=== PATIENT | female | born 1955 | race African-American/Black ===

== ENCOUNTER 2016-08-11 19:32 | Inpatient (IN) | payer BC ==
--- NOTE | ~2016-08-11 | DS ---
Discharge Summary [facility] [address] [place]. [address] NAME: KIM SAXENA : 59 STATUS : DIS IN PAT#: [id number] AGE: 61 ADM/REG DATE : 08/11/16 MR#: [id number] REPORT SERV DATE: 08/19/16 DICTATED BY: KENZIE NOBLE DATE: 08/18/16 REPORT STATUS : Draft TRANSCRIBED BY: MODL DATE: 08/18/16 ADMISSION DATE: 08/11/2016 DISCHARGE DATE: 08/18/2016 FINAL DIAGNOSES: 1. Acute kidney injury on chronic kidney disease IV, improving. 2. Urinary tract infection Klebsiella. 3. Hypertension. 4. Diabetes. 5. Anemia of chronic disease. 6. Mild pancytopenia. 7. Morbid obesity. 8. Status post hyperkalemia. 9. Status post gastroenteritis. 10.History of schizophrenia, cleared by Psych. DIAGNOSTIC EXAMS: Chest x-ray showing no acute process. Renal ultrasound showing small bilateral kidneys with increased renal cortical echotexture consistent with medical renal disease, no evidence of obstruction. CAT scan of the abdomen and pelvis showing mild to moderately distended small bowel gas- fluid level. Gas-fluid levels in the stomach and the colon suggesting gastroenteritis. No hydronephrosis. Repeat chest x-ray showing no acute cardiopulmonary disease, low lung volumes. HOSPITAL COURSE: Please refer to the H and P done by Dr. Arias dated on 08/11/2016. Briefly, this is a 61-year-old female with history of CKD who comes in for nausea, vomiting, and not feeling well. The patient went to the emergency room and was found to be in acute renal failure; this might be due to the diuretics and the ARBs that the patient was taking compiled with the nausea and vomiting that she has been having. The patient's creatinine was initially at 10, and with supportive treatment, it went down to 4.36 on discharge. We got Renal involved, and they did not see the need for a dialysis as the patient was urinating well, and they wanted the diuretics and the ARBs to be held until she follows up with her produce sorter, Dr. Storm, on an outpatient basis. Meanwhile, her gastroenteritis resolved, we were not able to culture any bacteria, and she was eating without any nausea and vomiting. Her vitals remained stable. Of note, she was supposed to be taking long- acting insulin with a sliding scale, however, her blood sugars have been wonderful while she was here, and we checked the hemoglobin A1c, it was 5.8. So with her renal function and hemoglobin A1c of 5.8, it will be better if we just monitor her sugar with sliding scale protocol level 1 and no additional insulin or diabetic medications. The patient has been approved to go to [facility]. She will be transferred there today, and she will follow up with the doctor; then follow up with PCP, Dr. Antonia Gates after SNF discharge; and follow up with Nephrology, Dr. Storm, in two to three weeks. DISCHARGE MEDICATIONS: She will be on the following medications: Aspirin 325 mg a day, Discharge Summary [address] [address] NAME: KIM SAXENA : 59 STATUS : DIS IN PAT#: [id number] AGE: 61 ADM/REG DATE : 08/11/16 MR#: [id number] REPORT SERV DATE: 08/19/16 DICTATED BY: KENZIE NOBLE. DATE: 08/18/16 REPORT STATUS : Draft TRANSCRIBED BY: MODShante DATE: 08/18/16 Coreg 25 mg twice a day, iron 300 mg twice a day, gabapentin 300 mg twice a day, subcu insulin protocol level 1, multivitamin once a day, Pravachol 40 mg at bedtime, trazodone 50 mg at bedtime, hydralazine 25 mg twice a day, albuterol as needed, and Tylenol as needed. She will be off the Zanaflex, Aldactone, morphine, furosemide, Cozaar, and potassium, and she will be continuing her PPI as scheduled at 40 mg once a day of Protonix. This has been explained to the patient, she agreed and understood the plan. MARY ALICE/RADHA Kenzie Noble M.D. / [id number] CC: Chelle Hinson MD
--- NOTE | ~2016-08-11 | CN ---
Consultation Report [facility] [address] [place]. [address] NAME: KIM SAXENA : 59 STATUS : ADM IN PAT#: [id number] AGE: 61 ADM/REG DATE : 08/11/16 MR#: [id number] REPORT SERV DATE: 08/17/16 DICTATED BY: RINKU FULLER DATE: 08/17/16 REPORT STATUS : Draft TRANSCRIBED BY: RADHA DATE: 08/17/16 PSYCHIATRIC CONSULTATION DATE OF CONSULTATION: 08/17/2016 I reviewed the patient's current and old medical records. I discussed patient's status with Dr. Gaytan. I discussed the patient's history with her long-term boyfriend who was at the bedside. HISTORY OF PRESENT ILLNESS: She was admitted with nausea, vomiting, associated with an acute exacerbation of chronic kidney disease. At this time, I am consulted because of her history of psychiatric issues in the past. PAST PSYCHIATRIC HISTORY: In recent years, she has had three or four admissions to [facility] [place] with delusional thinking. She was diagnosed with schizophrenia while she was there. She is followed as an outpatient by a mental health clinic on [facility]. In recent months, she has been very stable. Her only psychotropic medication at this time is trazodone 50 mg at bedtime. SOCIAL HISTORY: She has been blind for a number of years. She stated her blindness was caused by a brain tumor. She lives with her boyfriend of over thirty years. FAMILY HISTORY: Her sister has more severe schizophrenia. MENTAL STATUS: She was awake and alert. She was pleasant and cooperative in attitude. Her mood was euthymic. Her affect was full and appropriate. Her thinking was logical. She had no delusions. She had no hallucinations. She was oriented to time, place, and person. She was motivated for rehabilitation. DIAGNOSIS: Schizophrenia, unspecified type, by history. RECOMMENDATIONS: She is stable from a psychiatric viewpoint. I will sign off. DANIA/RADHA Rinku Fuller M.D. / [id number] CC: Arley Gaytan M.D.
--- NOTE | ~2016-08-11 | CN ---
Consultation Report [facility] [address] [place]. [address] NAME: KIM ODELL : 59 STATUS : ADM IN PAT#: [id number] AGE: 61 ADM/REG DATE : 08/11/16 MR#: [id number] REPORT SERV DATE: 08/15/16 DICTATED BY: DATE: REPORT STATUS : Draft TRANSCRIBED BY: MODShante DATE: 08/12/16 CONSULTATION REPORT DATE OF CONSULTATION: REASON FOR CONSULTATION: Acute kidney injury. HISTORY OF PRESENT ILLNESS: Ms. Odell is a 61-year-old black female with CKD stage 4, followed in the office by Dr. Storm with baseline creatinine that had been anywhere from 2.5 to 3 last time in our office. In February, her creatinine had been up to 3.63. It looks like her creatinine has been rising over the last six months of the year in 2016. She states, she was hospitalized at [facility] last month and her kidney function was stable. She is also being hospitalized at [facility] last night for depression. She is unaware of any recent medicine changes and she has been maintained on ARB, Aldactone, and potassium for some time. She presented to the emergency department yesterday with nausea, vomiting. She states her nausea, vomiting has only been present for 24 hours. Denied any diarrhea. She has had some shortness of breath, but relates this to her asthma. No chest pain, tightness, or pressure. In the emergency department, she was found to have a creatinine of 10 and a potassium of 6.3, creatinine overnight down to 9.71 and potassium is 4.9. There was some question of urinary retention. She also has UA findings consistent with urinary tract infection. PAST MEDICAL HISTORY: CKD stage 4, frequent urinary tract infections, secondary hyperparathyroidism with hypocalcemia, type 2 diabetes, hypertension, morbid obesity, hyperlipidemia, chronic incontinence, asthma. The patient is blind. SOCIAL HISTORY: She states that, she lives with her boyfriend, and she does walk some, but gets around in a wheelchair as well. Does not smoke. Only occasional alcohol. FAMILY MEDICAL HISTORY: Positive for mother with kidney disease, but not requiring dialysis. Diabetes, hypertension, CVA, and AR all run in her family as well. ALLERGIES: NONE. MEDICATIONS: At home are losartan, Embeda, Klor-Con, Pravachol, Aldactone, Zanaflex, trazodone, iron, calcium, Tylenol, albuterol, aspirin, Coreg, Lasix, Neurontin, Lantus, Humalog. REVIEW OF SYSTEMS: 12-point review of systems obtained, negative with the exception of that in HPI. PHYSICAL EXAMINATION: VITAL SIGNS: Temp 98.1, blood pressure 173/74, pulse 73, respiratory rate 18, O2 saturation is 100%. GENERAL: This is a pleasant, cooperative, black female. Awake, alert, and oriented, in no Consultation Report [address] [place]. [address] NAME: KIM ODELL : 59 STATUS : ADM IN PAT#: [id number] AGE: 61 ADM/REG DATE : 08/11/16 MR#: [id number] REPORT SERV DATE: 08/15/16 DICTATED BY: DATE: REPORT STATUS : Draft TRANSCRIBED BY: MODShante DATE: 08/12/16 acute distress. Answers questions appropriately. HEENT: Normocephalic, atraumatic. Conjunctivae, clear. Sclerae, anicteric. Oral mucosa is moist. NECK: Thick, difficult to assess. RESPIRATIONS: Even and unlabored. Breath sounds clear to auscultation. HEART: Rate is regular. She does have a systolic murmur. No rub or gallop. ABDOMEN: Obese, soft, nontender. Bowel sounds active. No CVA tenderness. BACK: Within normal limits. EXTREMITIES: With lymphedema. The edema does not only mildly pits and no unusual rashes, skin lesions. NEURO: Exam with generalized weakness. No focal deficits. Mood and affect, pleasant and appropriate. PERTINENT LABS AND X-RAYS: Sodium 140, potassium 4.9, chloride 101, CO2 of 28, BUN of 66, creatinine 9.7, calcium 9.1, phosphorus of 6.3, albumin of 3.1, ferritin 614. TSH of 0.729. WBCs 2.4, H and H 9 and 30, platelets are 127,000. IMPRESSION: 1. Acute kidney injury on chronic kidney disease stage 4. 2. Hyperkalemia. 3. Urinary tract infection, question of urinary retention. 4. Type 2 diabetes. 5. Hypertension. 6. Nausea and vomiting. PLAN: IV fluids. CT of the abdomen. Koch catheter. Hold Lasix, losartan, potassium, and Aldactone. Follow labs. Follow I's and O's. Hope to avoid dialysis, however it looks as though in the last six months of 2016 that she had some progression of disease. We may be seeing some progression here. We will follow along with you. Thank you for the consultation. MARÍA/MODL MICHELLE Ac / [id number] CC: Margaret Mckeon M.D.
--- NOTE | ~2016-08-11 | HP ---
History And Physical [facility] [address] [place]. [address] NAME: KIM ODELL : 59 STATUS : ADM IN [facility]#: [id number] AGE: 61 ADM/REG DATE : 08/11/16 MR#: [id number] REPORT SERV DATE: 08/12/16 DICTATED BY: DESTINY STEVEN DATE: 08/11/16 REPORT STATUS : Draft TRANSCRIBED BY: MODShante DATE: 08/11/16 DATE OF ADMISSION: 08/11/2016 POINT OF ENTRY: [facility] Emergency Department. PRIMARY KAIAWHINA KURA KAUPAPA MAORI: Dr. Storm. PRIMARY RIGGER APPRENTICE: Dr. Mariano. CHIEF COMPLAINT: Nausea, vomiting, not feeling well. HISTORY OF PRESENT ILLNESS: Ms. Odell is a 61-year-old female with a history of chronic kidney disease stage 3 to 4 with a baseline creatinine of approximately 2.5 to 3 as well as insulin-dependent diabetes mellitus type 2, hypertension, hyperlipidemia, and morbid obesity who presents to the emergency department today with a few day history of nausea, vomiting, poor oral intake, as well as not feeling well. The patient states that she was recently admitted to [facility] about two to three months ago for similar complaints of dehydration and acute kidney injury. After [facility] hospitalization, she was subsequently transferred to [facility] for treatment for depression. The patient states that she was doing well until about three to four days ago when she started to develop nausea and vomiting with inability to tolerate any significant oral intake. The patient states she was still trying to take her medications but cannot tell me if she kept them down or not as she is legally blind. She denies any diarrhea, any abdominal pain, fevers, night sweats, or chills. Beginning today, patient started to feel poorly and presented to the emergency department. Of note, her partner who is at bedside tells me that she is currently on an antibiotic for what she thinks is a bladder or kidney infection. Initial evaluation in the emergency department notable for a BUN of 69, creatinine of 10.10 with a potassium of 6.3. EKG showed very mild T-wave prominence in II and V3 but with no QT prolongation. Remainder of the labs otherwise unremarkable. The patient was given the appropriate hyperkalemia treatments, started on IV fluids, and admitted to the Hospitalist Service. The patient again denies fevers, night sweats, chills, chest pain, cough, sputum production, abdominal pain, diarrhea, constipation, dysuria, melena, hematochezia, or hematemesis. She reports stable shortness of breath secondary to her asthma as well as the above-mentioned nausea, vomiting, able to tolerate any oral intake. REVIEW OF SYSTEMS: Comprehensive review of systems otherwise negative unless listed in history of present illness. History And Physical [address] [address] NAME: KIM ODELL : 59 STATUS : ADM IN PAT#: [id number] AGE: 61 ADM/REG DATE : 08/11/16 MR#: [id number] REPORT SERV DATE: 08/12/16 DICTATED BY: DESTINY STEVEN DATE: 08/11/16 REPORT STATUS : Draft TRANSCRIBED BY: RADHA DATE: 08/11/16 PREVIOUS MEDICAL HISTORY: 1. Chronic kidney disease, stage 3 to stage 4. Baseline creatinine of approximately 2.5 to 3. 2. Insulin-dependent diabetes mellitus, type 2. 3. Hypertension. 4. Hyperlipidemia. 5. Morbid obesity. 6. Asthma. 7. Depression. 8. Osteoarthritis. 9. Degenerative disk disease. 10.Legal blindness. SURGICAL HISTORY: 1. Tubal ligation. 2. Abdominal hysterectomy. ALLERGIES: NO KNOWN DRUG ALLERGIES. HOME MEDICATIONS: 1. Tylenol 500 mg p.o. daily. 2. Albuterol one nebulization inhalation 4 hours p.r.n. 3. Aspirin 325 mg daily. 4. Lantus 40 units at bedtime. 5. Insulin sliding scale. 6. Coreg one tab b.i.d., dose unknown. 7. Aldactone one tab daily, dose unknown. 8. Muscle relaxer t.i.d., to be clarified. 9. Morphine one tab daily, to be clarified. 10.Reflux medication half tab daily, to be clarified. 11.Lasix one tab daily, dose unknown. 12.Gabapentin one tab b.i.d., dose unknown. 13.Losartan one tab daily, dose unknown. 14.Glkd-xzl-vwmfgbn iron supplement. 15.Calcium one tab daily. 16.Potassium one tab daily, dose unknown. 17.Pravastatin one tab at bedtime, dose unknown. 18.Trazodone one tab at bedtime, dose unknown. SOCIAL HISTORY: Denies any tobacco, alcohol, or illicits. Lives with her partner, again is legally blind. FAMILY MEDICAL HISTORY: Mother with hypertension, diabetes. Father with hypertension, diabetes. Siblings with diabetes. LABS AND IMAGIN. White count is 3.6, hemoglobin 9.9, hematocrit is 30.4, and platelet count is 179. INR History And Physical [address] [place]. [address] NAME: KIM ODELL : 59 STATUS : ADM IN [facility]#: [id number] AGE: 61 ADM/REG DATE : 08/11/16 MR#: [id number] REPORT SERV DATE: 08/12/16 DICTATED BY: DESTINY STEVEN DATE: 08/11/16 REPORT STATUS : Draft TRANSCRIBED BY: RADHA DATE: 08/11/16 is 1.1. MCV 79.8. 2. Sodium is 136, potassium 6.3, chloride 99, carbon dioxide 30, BUN 69, creatinine 10.10, glucose is 88, calcium is 9.3, magnesium 1.9, protein 7.3, albumin is 3.5, bilirubin is 0.3, ALT is 12, AST 9, and alkaline phosphatase is 64. 3. Lipase is 229. 4. Troponin 0.03. 5. EKG per my review shows normal sinus rhythm with some septal Q-waves with some mild T- wave prominence in lead II as well as V3, but no evidence of any hyperacute T-waves or QRS or QT prolongation. PHYSICAL EXAMINATION: VITAL SIGNS: Temperature is 98.5 degrees Fahrenheit, pulse is 82, respirations 18, saturating 94% on room air, and blood pressure 130/61. On recheck, it is now 140/100, saturating 98%. GENERAL: The patient is awake, alert, and in no acute distress. She is a morbidly obese, elderly female, in no acute distress. HEENT: Atraumatic and normocephalic. Slightly dry mucous membranes. NECK: No jugular venous distention. No carotid bruits. CARDIAC: Regular rate and rhythm. No murmurs or gallops. Normal S1, S2. LUNGS: Clear to auscultation bilaterally. No wheezes, rhonchi, or crackles. Some decreased breath sounds at bases as well as prolonged respiratory phase. ABDOMEN: Obese, soft, nontender, nondistended. Good bowel sounds. No rebound, guarding, or rigidity. EXTREMITIES: Warm, well perfused. Evidence of chronic lymphedema. SKIN: Warm and dry. PSYCH: Affect appropriate. NEURO: Alert and oriented x3. Cranial nerves 2 through 12 grossly intact. ASSESSMENT: Ms. Odell is a 61-year-old female with history of chronic kidney disease who presents with a few days of nausea, vomiting, poor oral intake, and found to have evidence of acute kidney injury as well as hyperkalemia. PROBLEM LIST: 1. Acute kidney injury likely secondary to dehydration. 2. Hyperkalemia. 3. Nausea and vomiting, poor oral intake. 4. Insulin-dependent diabetes mellitus type 2. 5. Hypertension. PLAN: 1. Acute kidney injury, likely secondary to poor oral intake as well as concomitant use of what appears to be multiple nephrotoxic medications including Lasix, Aldactone, and losartan. We will hold all nephrotoxic medications for aggressive IV fluid hydration. Urinalysis and urine lytes are currently pending at the time of dictation. Checking a renal ultrasound to rule out obstruction. Nephrology has been consulted and will see patient in the morning. 2. Hyperkalemia. No apparent EKG changes at this time. We will admit the patient to the [facility] And Physical [address] [address] NAME: KIM ODELL : 59 STATUS : ADM IN [facility]#: [id number] AGE: 61 ADM/REG DATE : 08/11/16 MR#: [id number] REPORT SERV DATE: 08/12/16 DICTATED BY: DESTINY STEVEN DATE: 08/11/16 REPORT STATUS : Draft TRANSCRIBED BY: MODhSante DATE: 08/11/16 floor on cardiac telemetry monitoring. In the ER, she has received calcium gluconate, insulin glucose, amp of sodium bicarb, Kayexalate, as well as IV fluids. Per my discussion with Nephrology, Dr. Lindsey, he also recommended some additional IV fluids of D5 with 60 mg of IV Lasix as she is currently making some amount of urine in an effort to help bring down her hyperkalemia. We will recheck an EKG as well as a BMP in a few hours. 3. Nausea and vomiting, likely gastroenteritis that she denies any fevers, abdominal pain, or diarrhea, and her abdomen is currently benign. We will provide supportive care. If she continues to have symptoms, may need to consult Gastroenterology in the future. 4. Insulin-dependent diabetes mellitus type 2. Continue patient's home long-acting insulin. Place on level 2 sliding scale. Check hemoglobin A1c. 5. Hypertension. Holding patient's antihypertensives pending confirmation by pharmacy. In the meantime, we will place her on some low-dose hydralazine and Norvasc with hydralazine p.r.n. 6. DVT prophylaxis. Heparin subcu. 7. Code status. The patient wished to be full code. JCB/MODL Destiny Steven MD / [id number] CC: Chelle Loyd MD Jay Philippose, M.D. Brant Holt, M.D.
[~2016-08-11 19:32] MED LIST: ACET500CAP PO; ASABAYER PO; ASAEC PO; CIP2 PO; COREG25 PO; COZAAR100 MG PO; FLORASTOR250 MG PO; HUMALOG SC; IMOD PO; KLOR-CON 1010 MEQ PO; L80 PO; LANTUS SC; MVI PO; NEUR300 PO; PRAVACHOL40 MG PO; PROVENTSOL INH; PROVHFA INH; REFRESH OPH; SPIRO25 PO; SYMBICORT 80/4.1 INH INH; TRAZ50 PO; VICTOZA18 MG/3 ML SC; VITAMIN D1000 UNI1 PO; ZANTAC300 MG PO
[2016-08-11] MEDS ORDERED: ACET500CAP PO (20:00)
[2016-08-11] MEDS ORDERED: ALBUTEROL5 INH (20:01)
[2016-08-11] MEDS ORDERED: COREG25 PO (20:01)
[2016-08-11] MEDS ORDERED: ASABAYER PO (20:01)
[2016-08-11] MEDS ORDERED: ZANAFLEX2 MG PO (20:02)
[2016-08-11] MEDS ORDERED: SPIRO25 PO (20:02)
[2016-08-11] MEDS ORDERED: EMBEDA1 CAP PO (20:05)
[2016-08-11] MEDS ORDERED: NEUR300 PO (20:06)
[2016-08-11] MEDS ORDERED: L80 PO (20:06)
[2016-08-11] MEDS ORDERED: REFLUX MED PO (20:06)
[2016-08-11] MEDS ORDERED: LANTUS SC (20:07)
[2016-08-11] MEDS ORDERED: OTC IRON SUPPLEMENT PO (20:07)
[2016-08-11] MEDS ORDERED: COZ50 PO (20:07)
[2016-08-11] MEDS ORDERED: HUMALOG SC (20:07)
[2016-08-11] MEDS ORDERED: CALCIUM PO (20:08)
[2016-08-11] MEDS ORDERED: PRAVACHOL40 MG PO (20:09)
[2016-08-11] MEDS ORDERED: KLOR-CON M2020 MEQ PO (20:09)
[2016-08-11] MEDS ORDERED: TRAZ50 PO (20:09)
[2016-08-11] MEDS ORDERED: *UNABLE1 (20:11)
[2016-08-11 20:57] LABS: BASOPHILS 0.3 %; BASOPHILS ABSOLUTE 0.01 10/3/uL (0.0-0.16); EOSINOPHILS 0.6 %; EOSINOPHILS ABSOLUTE 0.02 10/3/uL (0.0-0.53); HEMATOCRIT 30.4 % (36.0-48.0); HEMOGLOBIN 9.9 g/dL (12.0-16.0); IMMATURE GRANULOCYTES 0.3 %; IMMATURE GRANULOCYTES ABSOLUTE 0.01 10/3/uL (0.0-0.11); LYMPHOCYTES 20.1 %; LYMPHOCYTES ABSOLUTE 0.73 10/3/uL (0.67-4.30); MEAN CORPUSCULAR VOLUME 79.8 fL (80-100); MEAN PLATELET VOLUME 12.1 fL (9.2-13.0); MONOCYTES 9.9 %; MONOCYTES ABSOLUTE 0.36 10/3/uL (0.21-1.20); NEUTROPHILS 68.8 %; PLATELET COUNT 179 10/3/uL (150-400); RBC DISTRIBUTION WIDTH 16.1 % (12.0-16.0); RED CELL COUNT 3.81 10/6/uL (4.0-5.6); WHITE BLOOD CELLS 3.6 10/3/uL (4.5-10.5)
[2016-08-11 20:58] LABS: MANUAL DIFF NO %; MEAN CORPUS HGB CONC 32.6 g/dL (32.0-36.0)
[2016-08-11 21:06] LABS: INTERNATIONAL NORMAL RATI 1.1 UNITS (-); PARTIAL THROMBO TIME 25.1 SEC (22.5-37.2)
[2016-08-11 21:14] LABS: ALBUMIN 3.5 G/DL (3.5-5.0); ALKALINE PHOSPHATASE 64 U/L (45-117); BUN (BLOOD UREA NITROGEN) 69 MG/DL (6-23); CALCIUM, SERUM 9.3 MG/DL (8.5-10.4); CHEST PAIN PROFILE TAT 0 Hrs 21 Mins; CHLORIDE, SERUM 99 MMOL/L (96-112); CO2 (CARBON DIOXIDE) 30 MMOL/L (24-34); DIRECT BILIRUBIN 0.1 MG/DL (0.0-0.4); GFR AFRICAN AMERICAN 4 ML/MIN (>=60); GFR NON AFRICAN AMERICAN 4 ML/MIN (>=60); GLUCOSE, SERUM 88 MG/DL (60-99); INDIRECT BILIRUBIN(NOT ORDER) 0.2 MG/DL (0.1-0.9); POTASSIUM, SERUM 6.3 MMOL/L (3.5-5.3); SGOT(AST) 9 U/L (5-40); SGPT(ALT) 12 U/L (5-65); SODIUM, SERUM 136 MMOL/L (135-148); TOTAL BILIRUBIN 0.3 MG/DL (0-1.2); TOTAL PROTEIN 7.3 G/DL (6.0-8.5); TROPONIN I 0.03 NG/ML (<0.05)
[2016-08-11 22:18] LABS: ASCORBIC ACID (UR NOT ORDER) NEG (NEG); BILIRUBIN, URINE NEGATIVE (NEG); ER URINALYSIS TAT 0 Hrs 00 Mins; KETONE, URINE NEGATIVE (NEG); LEUKOCYTE ESTERASE(NOT OR LARGE (NEG); NITRITE (URINE) NEG (NEG); WBC (NOT ORDERED) (RFLEX) > 182 (0-5)
[2016-08-12 04:32] LABS: BASOPHILS 0.4 %; BASOPHILS ABSOLUTE 0.01 10/3/uL (0.0-0.16); EOSINOPHILS 0.8 %; EOSINOPHILS ABSOLUTE 0.02 10/3/uL (0.0-0.53); HEMATOCRIT 30.2 % (36.0-48.0); HEMOGLOBIN 9.8 g/dL (12.0-16.0); IMMATURE GRANULOCYTES 0.4 %; IMMATURE GRANULOCYTES ABSOLUTE 0.01 10/3/uL (0.0-0.11); LYMPHOCYTES 20.3 %; LYMPHOCYTES ABSOLUTE 0.49 10/3/uL (0.67-4.30); MEAN CORPUS HGB CONC 32.5 g/dL (32.0-36.0); MEAN CORPUSCULAR HEMOGLOB 26.2 pg (26.0-34.0); MEAN CORPUSCULAR VOLUME 80.7 fL (80-100); MEAN PLATELET VOLUME 11.6 fL (9.2-13.0); MONOCYTES 10.8 %; MONOCYTES ABSOLUTE 0.26 10/3/uL (0.21-1.20); NEUTROPHILS 67.3 %; NEUTROPHILS ABSOLUTE 1.62 10/3/uL (2.02-8.40); PLATELET COUNT 127 10/3/uL (150-400); RBC DISTRIBUTION WIDTH 16.1 % (12.0-16.0); RED CELL COUNT 3.74 10/6/uL (4.0-5.6)
[2016-08-12 04:34] LABS: MANUAL DIFF NO %; WHITE BLOOD CELLS 2.4 10/3/uL (4.5-10.5)
[2016-08-12 05:11] LABS: ALBUMIN 3.1 G/DL (3.5-5.0); BUN (BLOOD UREA NITROGEN) 66 MG/DL (6-23); CALCIUM, SERUM 9.1 MG/DL (8.5-10.4); CHLORIDE, SERUM 101 MMOL/L (96-112); CO2 (CARBON DIOXIDE) 28 MMOL/L (24-34); CREATININE 9.71 MG/DL (0.55-1.02); FERRITIN 614 NG/ML (8-252); GFR AFRICAN AMERICAN 5 ML/MIN (>=60); GFR NON AFRICAN AMERICAN 4 ML/MIN (>=60); IRON BINDING CAPACITY 291 MCG/DL (225-410); IRON, SERUM 67 MCG/DL (35-150); SODIUM, SERUM 140 MMOL/L (135-148)
[2016-08-12 05:17] LABS: GLUCOSE, SERUM 70 MG/DL (60-99); PHOSPHORUS, SERUM 6.3 MG/DL (2.5-4.5); POTASSIUM, SERUM 4.9 MMOL/L (3.5-5.3); ULTRASENSITIVE TSH 0.729 MCIU/ML (0.358-3.740)
[2016-08-12 06:47] LABS: PLATELET ESTIMATE SLT DEC (ADEQUATE); RBC MORPHOLOGY NORM (NORMAL)
[2016-08-12 11:37] LABS: FOLATE 5.2 NG/ML (>5.2)
[2016-08-12 12:13] LABS: GLYCOHEMOGLOBIN (HbA1c) 5.8 % (4.7-6.1)
[2016-08-12 13:22] LABS: B NATRIURETIC PEPTIDE (BNP) 93.8 PG/ML (< 100.0)
[2016-08-13 07:08] LABS: BASOPHILS 0.3 %; BASOPHILS ABSOLUTE 0.01 10/3/uL (0.0-0.16); EOSINOPHILS ABSOLUTE 0.06 10/3/uL (0.0-0.53); HEMATOCRIT 27.7 % (36.0-48.0); HEMOGLOBIN 8.9 g/dL (12.0-16.0); IMMATURE GRANULOCYTES 0.3 %; IMMATURE GRANULOCYTES ABSOLUTE 0.01 10/3/uL (0.0-0.11); LYMPHOCYTES 28.6 %; LYMPHOCYTES ABSOLUTE 0.87 10/3/uL (0.67-4.30); MEAN CORPUS HGB CONC 32.1 g/dL (32.0-36.0); MEAN PLATELET VOLUME 11.7 fL (9.2-13.0); MONOCYTES 15.8 %; MONOCYTES ABSOLUTE 0.48 10/3/uL (0.21-1.20); NEUTROPHILS ABSOLUTE 1.61 10/3/uL (2.02-8.40); PLATELET COUNT 127 10/3/uL (150-400); RBC DISTRIBUTION WIDTH 15.8 % (12.0-16.0); RED CELL COUNT 3.42 10/6/uL (4.0-5.6)
[2016-08-13 07:21] LABS: MANUAL DIFF NO %
[2016-08-13 07:23] LABS: A/G RATIO 0.8 (0.7-1.9); ALBUMIN 2.5 G/DL (3.5-5.0); ALKALINE PHOSPHATASE 54 U/L (45-117); CHLORIDE, SERUM 103 MMOL/L (96-112); CO2 (CARBON DIOXIDE) 29 MMOL/L (24-34); POTASSIUM, SERUM 4.5 MMOL/L (3.5-5.3); SGOT(AST) 5 U/L (5-40); SGPT(ALT) 8 U/L (5-65); SODIUM, SERUM 140 MMOL/L (135-148); TOTAL BILIRUBIN 0.3 MG/DL (0-1.2)
[2016-08-13 07:24] LABS: BUN (BLOOD UREA NITROGEN) 60 MG/DL (6-23); CALCIUM, SERUM 8.1 MG/DL (8.5-10.4); CREATININE 8.26 MG/DL (0.55-1.02); GFR AFRICAN AMERICAN 6 ML/MIN (>=60); GFR NON AFRICAN AMERICAN 5 ML/MIN (>=60); TOTAL PROTEIN 5.5 G/DL (6.0-8.5)
[2016-08-13 07:39] LABS: GLUCOSE, SERUM 47 MG/DL (60-99)
[2016-08-14 07:05] LABS: BASOPHILS 0 %; EOSINOPHILS 1.9 %; EOSINOPHILS ABSOLUTE 0.05 10/3/uL (0.0-0.53); HEMOGLOBIN 7.6 g/dL (12.0-16.0); LYMPHOCYTES 24.4 %; LYMPHOCYTES ABSOLUTE 0.63 10/3/uL (0.67-4.30); MEAN CORPUS HGB CONC 31.4 g/dL (32.0-36.0); MEAN CORPUSCULAR HEMOGLOB 25.8 pg (26.0-34.0); MEAN PLATELET VOLUME 10.9 fL (9.2-13.0); MONOCYTES 14.3 %; MONOCYTES ABSOLUTE 0.37 10/3/uL (0.21-1.20); NEUTROPHILS 59.4 %; NEUTROPHILS ABSOLUTE 1.53 10/3/uL (2.02-8.40); PLATELET COUNT 94 10/3/uL (150-400); RBC DISTRIBUTION WIDTH 15.8 % (12.0-16.0); RED CELL COUNT 2.95 10/6/uL (4.0-5.6); WHITE BLOOD CELLS 2.6 10/3/uL (4.5-10.5)
[2016-08-14 07:09] LABS: HEMATOCRIT 24.2 % (36.0-48.0); MANUAL DIFF NO %
[2016-08-14 07:10] LABS: CALCIUM, SERUM 7.9 MG/DL (8.5-10.4); CHLORIDE, SERUM 104 MMOL/L (96-112); CO2 (CARBON DIOXIDE) 28 MMOL/L (24-34); POTASSIUM, SERUM 4.6 MMOL/L (3.5-5.3); SODIUM, SERUM 139 MMOL/L (135-148)
[2016-08-14 07:11] LABS: BUN (BLOOD UREA NITROGEN) 51 MG/DL (6-23); CREATININE 6.83 MG/DL (0.55-1.02); GFR AFRICAN AMERICAN 7 ML/MIN (>=60); GFR NON AFRICAN AMERICAN 6 ML/MIN (>=60); GLUCOSE, SERUM 89 MG/DL (60-99)
[2016-08-15 06:08] LABS: BASOPHILS 0 %; EOSINOPHILS 2.1 %; EOSINOPHILS ABSOLUTE 0.07 10/3/uL (0.0-0.53); HEMOGLOBIN 8.7 g/dL (12.0-16.0); IMMATURE GRANULOCYTES 0.3 %; IMMATURE GRANULOCYTES ABSOLUTE 0.01 10/3/uL (0.0-0.11); LYMPHOCYTES 19.1 %; LYMPHOCYTES ABSOLUTE 0.64 10/3/uL (0.67-4.30); MEAN CORPUS HGB CONC 31.8 g/dL (32.0-36.0); MEAN CORPUSCULAR HEMOGLOB 26.2 pg (26.0-34.0); MEAN CORPUSCULAR VOLUME 82.5 fL (80-100); MEAN PLATELET VOLUME 11.5 fL (9.2-13.0); MONOCYTES 9.3 %; MONOCYTES ABSOLUTE 0.31 10/3/uL (0.21-1.20); NEUTROPHILS 69.2 %; NEUTROPHILS ABSOLUTE 2.32 10/3/uL (2.02-8.40); PLATELET COUNT 98 10/3/uL (150-400); RBC DISTRIBUTION WIDTH 15.4 % (12.0-16.0); RED CELL COUNT 3.32 10/6/uL (4.0-5.6); WHITE BLOOD CELLS 3.4 10/3/uL (4.5-10.5)
[2016-08-15 06:10] LABS: HEMATOCRIT 27.4 % (36.0-48.0)
[2016-08-15 06:11] LABS: MANUAL DIFF NO %
[2016-08-15 06:32] LABS: ALBUMIN 2.3 G/DL (3.5-5.0); BUN (BLOOD UREA NITROGEN) 49 MG/DL (6-23); CALCIUM, SERUM 8.5 MG/DL (8.5-10.4); CHLORIDE, SERUM 102 MMOL/L (96-112); CO2 (CARBON DIOXIDE) 30 MMOL/L (24-34); GLUCOSE, SERUM 83 MG/DL (60-99); POTASSIUM, SERUM 4.6 MMOL/L (3.5-5.3); SODIUM, SERUM 139 MMOL/L (135-148)
[2016-08-15 06:34] LABS: PLATELET ESTIMATE DEC (ADEQUATE); RBC MORPHOLOGY NORM (NORMAL)
[2016-08-15 06:35] LABS: CREATININE 5.63 MG/DL (0.55-1.02); GFR AFRICAN AMERICAN 9 ML/MIN (>=60); GFR NON AFRICAN AMERICAN 8 ML/MIN (>=60); PHOSPHORUS, SERUM 5.3 MG/DL (2.5-4.5)
[2016-08-15 07:38] LABS: SMEAR FOR ABNORMAL CELLS SEE PATHOLOGY REPORT
[2016-08-15 13:40] LABS: HEPARIN-INDUCED PLATELET AB NEGATIVE (NEGATIVE)
[2016-08-16 06:09] LABS: BASOPHILS 0.3 %; BASOPHILS ABSOLUTE 0.01 10/3/uL (0.0-0.16); EOSINOPHILS 2.3 %; EOSINOPHILS ABSOLUTE 0.09 10/3/uL (0.0-0.53); HEMATOCRIT 27.7 % (36.0-48.0); IMMATURE GRANULOCYTES 0.3 %; IMMATURE GRANULOCYTES ABSOLUTE 0.01 10/3/uL (0.0-0.11); LYMPHOCYTES 10.2 %; MEAN CORPUS HGB CONC 32.5 g/dL (32.0-36.0); MEAN CORPUSCULAR HEMOGLOB 26.8 pg (26.0-34.0); MEAN CORPUSCULAR VOLUME 82.4 fL (80-100); MEAN PLATELET VOLUME 10.9 fL (9.2-13.0); MONOCYTES 13.2 %; MONOCYTES ABSOLUTE 0.52 10/3/uL (0.21-1.20); NEUTROPHILS 73.7 %; PLATELET COUNT 93 10/3/uL (150-400); RBC DISTRIBUTION WIDTH 15.6 % (12.0-16.0); RED CELL COUNT 3.36 10/6/uL (4.0-5.6); WHITE BLOOD CELLS 3.9 10/3/uL (4.5-10.5)
[2016-08-16 06:14] LABS: ALBUMIN 2.2 G/DL (3.5-5.0); BUN (BLOOD UREA NITROGEN) 47 MG/DL (6-23); CALCIUM, SERUM 8.6 MG/DL (8.5-10.4); CHLORIDE, SERUM 102 MMOL/L (96-112); CO2 (CARBON DIOXIDE) 28 MMOL/L (24-34); CREATININE 5.19 MG/DL (0.55-1.02); GFR AFRICAN AMERICAN 10 ML/MIN (>=60); GFR NON AFRICAN AMERICAN 8 ML/MIN (>=60); GLUCOSE, SERUM 97 MG/DL (60-99); POTASSIUM, SERUM 4.7 MMOL/L (3.5-5.3); SODIUM, SERUM 139 MMOL/L (135-148)
[2016-08-16 06:18] LABS: MANUAL DIFF NO %
[2016-08-16 06:19] LABS: PHOSPHORUS, SERUM 4.1 MG/DL (2.5-4.5)
[2016-08-16 08:08] LABS: PLATELET ESTIMATE DEC (ADEQUATE); RBC MORPHOLOGY NORM (NORMAL)
[2016-08-17 05:27] LABS: BASOPHILS 0.3 %; BASOPHILS ABSOLUTE 0.01 10/3/uL (0.0-0.16); EOSINOPHILS 4.4 %; EOSINOPHILS ABSOLUTE 0.14 10/3/uL (0.0-0.53); HEMOGLOBIN 8.7 g/dL (12.0-16.0); LYMPHOCYTES 18.6 %; LYMPHOCYTES ABSOLUTE 0.59 10/3/uL (0.67-4.30); MEAN CORPUS HGB CONC 32.2 g/dL (32.0-36.0); MEAN CORPUSCULAR HEMOGLOB 26.4 pg (26.0-34.0); MEAN CORPUSCULAR VOLUME 81.8 fL (80-100); MEAN PLATELET VOLUME 11.4 fL (9.2-13.0); MONOCYTES 12.6 %; NEUTROPHILS 64.1 %; NEUTROPHILS ABSOLUTE 2.04 10/3/uL (2.02-8.40); PLATELET COUNT 94 10/3/uL (150-400); RBC DISTRIBUTION WIDTH 15.5 % (12.0-16.0); WHITE BLOOD CELLS 3.2 10/3/uL (4.5-10.5)
[2016-08-17 05:29] LABS: MANUAL DIFF NO %
[2016-08-17 05:51] LABS: ALBUMIN 2.3 G/DL (3.5-5.0); BUN (BLOOD UREA NITROGEN) 45 MG/DL (6-23); CALCIUM, SERUM 8.8 MG/DL (8.5-10.4); CHLORIDE, SERUM 100 MMOL/L (96-112); CO2 (CARBON DIOXIDE) 29 MMOL/L (24-34); GFR AFRICAN AMERICAN 11 ML/MIN (>=60); GFR NON AFRICAN AMERICAN 10 ML/MIN (>=60); GLUCOSE, SERUM 95 MG/DL (60-99); PHOSPHORUS, SERUM 3.8 MG/DL (2.5-4.5); POTASSIUM, SERUM 4.9 MMOL/L (3.5-5.3); SODIUM, SERUM 136 MMOL/L (135-148)
[2016-08-17 05:52] LABS: CREATININE 4.59 MG/DL (0.55-1.02)
[2016-08-17 06:10] LABS: PLATELET ESTIMATE DEC (ADEQUATE)
[2016-08-17 06:11] LABS: HYPOCHROMIA 1+ (3-10/OIF) (0-2/OIF); SCHISTOCYTES OCC (0-2/OIF)
[2016-08-17 07:36] LABS: CREAT SERUM (NOT ORDER) 4.59 MG/DL (0.53-1.43)
[2016-08-17 07:48] LABS: CREAT CLEAR (NOT ORDER) 17.4 ML/MIN (75-115); CREATININE, URINE 76.6 MG/DL; T.P. URINE (NOT ORDER RAN 39.4 MG/DL
[2016-08-17 07:49] LABS: URINE CREAT 1.14 G/T VOL (0.6-2.8)
[2016-08-18 05:44] LABS: BUN (BLOOD UREA NITROGEN) 45 MG/DL (6-23); CALCIUM, SERUM 8.9 MG/DL (8.5-10.4); CHLORIDE, SERUM 101 MMOL/L (96-112); CO2 (CARBON DIOXIDE) 28 MMOL/L (24-34); CREATININE 4.36 MG/DL (0.55-1.02); GFR AFRICAN AMERICAN 12 ML/MIN (>=60); GFR NON AFRICAN AMERICAN 10 ML/MIN (>=60); GLUCOSE, SERUM 84 MG/DL (60-99); SODIUM, SERUM 136 MMOL/L (135-148)
[2016-11-07] MEDS ORDERED: K-TABS10 MEQ PO (20:01)
[2016-11-07] MEDS ORDERED: VITAMIN D1000 UNI1 PO (20:01)
[2016-11-07] MEDS ORDERED: SPIRO25 PO (20:02)
[2016-11-07] MEDS ORDERED: COZAAR100 MG PO (20:02)
[2016-11-07] MEDS ORDERED: L80 PO (20:03)
[2016-11-07] MEDS ORDERED: NEUR300 PO (20:03)
[2016-11-07] MEDS ORDERED: HUMALOG SC (20:04)
[2016-11-07] MEDS ORDERED: LANTUS SC (20:04)
[2016-11-07] MEDS ORDERED: PHOSLO PO (20:04)
[2016-11-07] MEDS ORDERED: PRAVACHOL40 MG PO (20:05)
[2016-11-07] MEDS ORDERED: COREG25 PO (20:05)
[2016-11-07] MEDS ORDERED: TRAZODONE300 MG PO (20:05)
[2016-11-07] MEDS ORDERED: ASABAYER PO (20:05)
[2016-11-07] MEDS ORDERED: FERROUS SULF325 M1 PO (20:06)
[2017-01-01] MEDS ORDERED: LAC-HYDRIN TOP (13:49)
[2017-01-01] MEDS ORDERED: NORV5 PO (13:49)
[2017-01-01] MEDS ORDERED: HUMALOG SC (13:49)
[2017-01-01] MEDS ORDERED: CARDCD120 PO (13:49)
[2017-01-01] MEDS ORDERED: SUCR PO (13:50)
[2017-01-01] MEDS ORDERED: CENTRUM PO (13:50)
[2017-01-01] MEDS ORDERED: PRAVACHOL40 MG PO (13:50)
[2017-01-01] MEDS ORDERED: PROTONIX PO (13:50)
[2017-01-01] MEDS ORDERED: DEMA100 PO (13:51)
[2017-01-01] MEDS ORDERED: FERROUS SULF325 M1 PO (13:51)
[2017-01-01] MEDS ORDERED: TRAZODONE150 MG PO (13:51)
[2017-01-01] MEDS ORDERED: VITC500 PO (13:51)
[2017-01-01] MEDS ORDERED: LANTUS SC (13:52)
[2017-01-01] MEDS ORDERED: DUONEB INH (13:52)
== END 2016-08-18 15:45 | DRG 683 ==
LOC: ER 19:32 → 2SO 23:11
PROVIDERS: Internal Medicine; Nurse Practitioner; Registered Nurse
DX: N17.9 Acute kidney failure, unspecified (principal); D61.818 Other pancytopenia; E11.22 Type 2 diabetes mellitus with diabetic chronic kidney disease; Z68.43 Body mass index [BMI] 50.0-59.9, adult; N39.0 Urinary tract infection, site not specified; E87.5 Hyperkalemia; E86.0 Dehydration; K52.9 Noninfective gastroenteritis and colitis, unspecified; E78.5 Hyperlipidemia, unspecified; E66.01 Morbid (severe) obesity due to excess calories; F32.9 Major depressive disorder, single episode, unspecified; H54.8 Legal blindness, as defined in USA; N18.3 Chronic kidney disease, stage 3 (moderate); I12.9 Hypertensive chronic kidney disease with stage 1 through stage 4 chronic kidney disease, or unspecified chronic kidney disease; D63.8 Anemia in other chronic diseases classified elsewhere; F20.9 Schizophrenia, unspecified; B96.1 Klebsiella pneumoniae [K. pneumoniae] as the cause of diseases classified elsewhere; Z79.4 Long term (current) use of insulin; Z98.890 Other specified postprocedural states; Z83.3 Family history of diabetes mellitus; Z82.49 Family history of ischemic heart disease and other diseases of the circulatory system
CPT/HCPCS: 36415; 71010; 74176; 76775; 80048; 80053; 80069; 80076; 81001; 82570; 82575; 82607; 82728; 82746; 82962; 83036; 83540; 83550; 83690; 83735; 83880; 84156; 84439; 84443; 84484; 85025; 85610; 85730; 86022; 86850; 86900; 86901; 86920; 87040; 87077; 87086; 87186; 93005; 94640; 96365; 96375; 97161-GP; 97530-GP; 99285; A9270-GY; J0610; J1652; J1940; J1956; J2405; J3475; P9016

== ENCOUNTER 2016-08-28 22:00 | Emergency (ER) | payer BC ==
[~2016-08-28 22:00] MED LIST changes: +*UNABLE1; +ALBUTEROL5 INH; +CALCIUM PO; +COZ50 PO; +EMBEDA1 CAP PO; +KLOR-CON M2020 MEQ PO; +OTC IRON SUPPLEMENT PO; +REFLUX MED PO; +ZANAFLEX2 MG PO
[2016-08-29 01:29] LABS: BASOPHILS 0.5 %; BASOPHILS ABSOLUTE 0.02 10/3/uL (0.0-0.16); EOSINOPHILS 6.9 %; EOSINOPHILS ABSOLUTE 0.26 10/3/uL (0.0-0.53); HEMOGLOBIN 10.2 g/dL (12.0-16.0); IMMATURE GRANULOCYTES 0.3 %; IMMATURE GRANULOCYTES ABSOLUTE 0.01 10/3/uL (0.0-0.11); LYMPHOCYTES 21.9 %; LYMPHOCYTES ABSOLUTE 0.82 10/3/uL (0.67-4.30); MANUAL DIFF NO %; MEAN CORPUS HGB CONC 31.9 g/dL (32.0-36.0); MEAN CORPUSCULAR HEMOGLOB 26.4 pg (26.0-34.0); MEAN CORPUSCULAR VOLUME 82.9 fL (80-100); MEAN PLATELET VOLUME 10.9 fL (9.2-13.0); MONOCYTES 8.3 %; MONOCYTES ABSOLUTE 0.31 10/3/uL (0.21-1.20); NEUTROPHILS 62.1 %; NEUTROPHILS ABSOLUTE 2.33 10/3/uL (2.02-8.40); PLATELET COUNT 220 10/3/uL (150-400); RBC DISTRIBUTION WIDTH 16.4 % (12.0-16.0); RED CELL COUNT 3.86 10/6/uL (4.0-5.6); WHITE BLOOD CELLS 3.8 10/3/uL (4.5-10.5)
[2016-08-29 01:35] LABS: INTERNATIONAL NORMAL RATI 1.1 UNITS (-); PARTIAL THROMBO TIME 26.9 SEC (22.5-37.2); PROTIME (NOT ORD) 14.5 SEC (12.0-14.5)
[2016-08-29 01:59] LABS: ALKALINE PHOSPHATASE 78 U/L (45-117); BUN (BLOOD UREA NITROGEN) 45 MG/DL (6-23); CALCIUM, SERUM 9.4 MG/DL (8.5-10.4); CHEST PAIN PROFILE TAT 0 Hrs 36 Mins; CHLORIDE, SERUM 102 MMOL/L (96-112); CO2 (CARBON DIOXIDE) 31 MMOL/L (24-34); DIRECT BILIRUBIN 0.1 MG/DL (0.0-0.4); GFR AFRICAN AMERICAN 13 ML/MIN (>=60); GFR NON AFRICAN AMERICAN 11 ML/MIN (>=60); GLUCOSE, SERUM 108 MG/DL (60-99); INDIRECT BILIRUBIN(NOT ORDER) 0.3 MG/DL (0.1-0.9); POTASSIUM, SERUM 4.4 MMOL/L (3.5-5.3); SGOT(AST) 14 U/L (5-40); SGPT(ALT) 18 U/L (5-65); SODIUM, SERUM 141 MMOL/L (135-148); TOTAL BILIRUBIN 0.4 MG/DL (0-1.2); TOTAL PROTEIN 6.9 G/DL (6.0-8.5); TROPONIN I <0.02 NG/ML (<0.05)
[2016-08-29 02:31] LABS: ASCORBIC ACID (UR NOT ORDER) NEG (NEG); BILIRUBIN, URINE NEGATIVE (NEG); ER URINALYSIS TAT 0 Hrs 00 Mins; KETONE, URINE NEGATIVE (NEG); LEUKOCYTE ESTERASE(NOT OR LARGE (NEG); NITRITE (URINE) NEG (NEG); WBC (NOT ORDERED) (RFLEX) 17 (0-5)
[2016-11-07] MEDS ORDERED: VITAMIN D1000 UNI1 PO (20:01)
[2016-11-07] MEDS ORDERED: K-TABS10 MEQ PO (20:01)
[2016-11-07] MEDS ORDERED: COZAAR100 MG PO (20:02)
[2016-11-07] MEDS ORDERED: SPIRO25 PO (20:02)
[2016-11-07] MEDS ORDERED: NEUR300 PO (20:03)
[2016-11-07] MEDS ORDERED: L80 PO (20:03)
[2016-11-07] MEDS ORDERED: LANTUS SC (20:04)
[2016-11-07] MEDS ORDERED: PHOSLO PO (20:04)
[2016-11-07] MEDS ORDERED: HUMALOG SC (20:04)
[2016-11-07] MEDS ORDERED: TRAZODONE300 MG PO (20:05)
[2016-11-07] MEDS ORDERED: ASABAYER PO (20:05)
[2016-11-07] MEDS ORDERED: PRAVACHOL40 MG PO (20:05)
[2016-11-07] MEDS ORDERED: COREG25 PO (20:05)
[2016-11-07] MEDS ORDERED: FERROUS SULF325 M1 PO (20:06)
[2017-01-01] MEDS ORDERED: HUMALOG SC (13:49)
[2017-01-01] MEDS ORDERED: NORV5 PO (13:49)
[2017-01-01] MEDS ORDERED: CARDCD120 PO (13:49)
[2017-01-01] MEDS ORDERED: LAC-HYDRIN TOP (13:49)
[2017-01-01] MEDS ORDERED: PRAVACHOL40 MG PO (13:50)
[2017-01-01] MEDS ORDERED: SUCR PO (13:50)
[2017-01-01] MEDS ORDERED: CENTRUM PO (13:50)
[2017-01-01] MEDS ORDERED: PROTONIX PO (13:50)
[2017-01-01] MEDS ORDERED: FERROUS SULF325 M1 PO (13:51)
[2017-01-01] MEDS ORDERED: DEMA100 PO (13:51)
[2017-01-01] MEDS ORDERED: VITC500 PO (13:51)
[2017-01-01] MEDS ORDERED: TRAZODONE150 MG PO (13:51)
[2017-01-01] MEDS ORDERED: DUONEB INH (13:52)
[2017-01-01] MEDS ORDERED: LANTUS SC (13:52)
== END 2016-08-29 03:10 | disposition home or self-care (01) ==
LOC: ER 22:00
PROVIDERS: Nurse Practitioner Acute Care
DX: N39.0 Urinary tract infection, site not specified (principal); J45.909 Unspecified asthma, uncomplicated; I12.9 Hypertensive chronic kidney disease with stage 1 through stage 4 chronic kidney disease, or unspecified chronic kidney disease; N18.9 Chronic kidney disease, unspecified; E11.22 Type 2 diabetes mellitus with diabetic chronic kidney disease; D64.9 Anemia, unspecified; F32.9 Major depressive disorder, single episode, unspecified; F20.9 Schizophrenia, unspecified; Z86.73 Personal history of transient ischemic attack (TIA), and cerebral infarction without residual deficits; Z98.51 Tubal ligation status; Z79.899 Other long term (current) drug therapy; Z79.82 Long term (current) use of aspirin; Z79.4 Long term (current) use of insulin
CPT/HCPCS: 71010; 80048; 80076; 81001; 83735; 84484; 85025; 85610; 85730; 87077; 87086; 87186; 93005; 99285